=== PATIENT | female | born 1955 | race Caucasian/White ===

== ENCOUNTER 2020-02-06 10:00 | Outpatient (REF) | payer OTHER, SELFPAY ==
--- NOTE | 2020-02-06 | MM_ITS ---
EXAMINATION: MM SCREENING DIGITAL BREAST TOMOSYNTHESIS, BILATERAL CLINICAL INFORMATION: Screening. Asymptomatic. The lifetime risk of breast cancer based on the Tyrer-Cuzick Model is 5%. COMPARISON: Mammography: 07/26/2018, 10/27/2016, 10/27/2014, 04/06/2011 TECHNIQUE: Digital breast tomosynthesis is performed in both the craniocaudal and mediolateral oblique views along with computer-aided detection (CAD). Synthesized 2D images are generated from the tomosynthesis. FINDINGS: There are scattered areas of fibroglandular density (ACR BI-RADS breast composition Category b). There are no significant masses, abnormal calcifications, or other abnormalities. Parenchymal pattern is similar to prior studies. No developing density. There is stable nodularity bilateral outer breasts on the CC views. No significant changes from prior exams. MM/MM tomosynthesis screening BI IMPRESSION: There are no significant changes from prior exams. ASSESSMENT: BI-RADS 2: Benign RECOMMENDATION: Routine annual mammography screening. This patient's information was entered into a reminder system with a target due date for their next mammogram.
[2020-02-06 11:06] LABS: Anion Gap 13 (12-20); Blood Urea Nitrogen 17 mg/dL (9-16); Calcium 8.7 mg/dL (8.4-10.2); Carbon Dioxide 26 mmol/L (22-29); Chloride 106 mmol/L (96-108); Cholesterol 178 mg/dL; Estimated Glomerular Filt Rate > 60; Glucose Random 86 mg/dL (60-115); HDL Cholesterol 59 mg/dL; LDL Cholesterol Calculated 110 mg/dl; Potassium 4.6 mmol/l (3.3-5.1); Sodium 140 mmol/L (135-145); Triglycerides 49 mg/dL
== END 2020-02-06 10:01 | disposition home or self-care (01) ==
LOC: HO.LAB 10:00
PROVIDERS: Visit Provider Internal Medicine
DX: Z12.31 Encounter for screening mammogram for malignant neoplasm of breast (principal); I10 Essential (primary) hypertension
CPT/HCPCS: 77063; 77067; 80048; 80061

== ENCOUNTER 2020-02-06 10:34 | Outpatient (REF) | payer OTHER, SELFPAY | END 2020-02-06 10:35 | disposition home or self-care (01) | LOC: HO.MAMMO 10:34 | PROVIDERS: Visit Provider Internal Medicine | DX: Z13.89 Encounter for screening for other disorder (principal) ==